=== PATIENT | male | born 1935 | race Caucasian/White ===

== ENCOUNTER 2017-11-01 08:00 | Outpatient (CLI) | payer MEDICARE, OTHER ==
[2017-11-01 12:52] LABS: CALCIUM 8.7 mg/dL (8.5-10.3); CREATININE 1.4 mg/dL (0.6-1.2)
== END 2017-11-01 08:01 | disposition home or self-care (01) ==
LOC: LAB.N 08:00
PROVIDERS: ATTEND Nurse Practitioner
DX: R00.1 Bradycardia, unspecified (principal); R60.9 Edema, unspecified; I10 Essential (primary) hypertension
CPT/HCPCS: 36415; 80048

== ENCOUNTER 2017-12-15 10:14 | Outpatient (CLI) | payer MEDICARE, OTHER ==
--- NOTE | 2017-12-15 14:03 | XRAY Report ---
Reason: LUMBAGO Procedure Date: 12/15/2017 Accession Number: [id number] / [id number] Procedure: XR - Lumbar Spine 2 View CPT Code: FULL RESULT: EXAM: LUMBOSACRAL SPINE RADIOGRAPHY EXAM DATE: 12/15/2017 10:30 AM. CLINICAL HISTORY: LUMBAGO. COMPARISONS: None. TECHNIQUE: 3 views. FINDINGS: Alignment: No spondylolisthesis or scoliosis. Bones: Five [id number] lumbar vertebral bodies are present. No fractures or bone lesions. Disks: There is mild narrowing of the L1-L2 and L2-L3 disk spaces. There is mild to moderate narrowing of the L3-L4, L4-L5, and L5-S1 disk spaces. Facets: There are small to moderate anterior osteophytes. Sacroiliac Joints: Unremarkable. Soft Tissues: The visualized bowel gas pattern is normal. IMPRESSION: Mild to moderate lumbar spondylosis RADIA
== END 2017-12-15 10:15 | disposition home or self-care (01) ==
LOC: DI 10:14
PROVIDERS: ATTEND Nurse Practitioner
DX: M47.896 Other spondylosis, lumbar region (principal)
CPT/HCPCS: 72100